=== PATIENT | female | born 1965 | race Caucasian/White ===

== ENCOUNTER 2019-07-10 16:01 | Emergency (ER) | payer SELFPAY ==
[~2019-07-10] VITALS: Ht 149.9 cm; Wt 59.5 kg
[2019-07-10 16:13] VITALS: BP 129/80
[2019-07-10] MEDS ORDERED: SULF1TAB49 PO (17:16)
== END 2019-07-10 17:26 | disposition home or self-care (01) ==
LOC: ER 16:02
DX: L73.9 Follicular disorder, unspecified (principal); F17.200 Nicotine dependence, unspecified, uncomplicated; F15.90 Other stimulant use, unspecified, uncomplicated; Z98.890 Other specified postprocedural states; Z79.2 Long term (current) use of antibiotics
CPT/HCPCS: 99283